=== PATIENT | male | born 2000 | race Caucasian/White ===

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

== ENCOUNTER → 2021-07-24 | Outpatient (CLI) | payer MEDICAID ==
[2021-07-24 12:41] LABS: BASO # 0.07 K/mm3 (0.02-0.10); EOS # 0.05 K/mm3 (0.04-0.40); EOS % 0.4 % (0.0-4.0); HEMATOCRIT 47.4 % (36.0-47.0); HEMOGLOBIN 16.2 g/dL (12.5-16.1); LYMPH# 2.24 K/mm3 (1.50-4.00); MEAN CELL VOLUME 85 fl (78-95); MEAN CORPUSCULAR HEMOGLOBIN 29 pg (26-32); MEAN CORPUSCULAR HGB CONC 34 g/dL (33-37); MEAN PLATELET VOLUME 11.8 fl (7.4-10.4); MONO # 0.78 K/mm3 (0.20-0.80); NEU # 9.68 K/mm3 (1.40-6.50); PLATELET COUNT 218 K/mm3 (130-400); RED CELL DISTRIBUTION WIDTH 12.1 % (11.5-14.5); WHITE BLOOD COUNT 12.8 K/mm3 (4.8-10.8)
[2021-07-24 12:45] LABS: ALBUMIN 5.1 g/dL (3.5-5.0); POTASSIUM 3.6 mmol/L (3.5-5.1)
[2021-07-24 12:47] LABS: CALCIUM 9.9 mg/dL (8.3-10.5)
[2021-07-24 12:50] LABS: TOTAL BILIRUBIN 0.7 mg/dL (0.2-1.2)
[2021-07-24 12:54] LABS: MAGNESIUM 2.1 mg/dL (1.70-2.20)
[2021-07-24 13:09] LABS: URINE APPEARANCE CLEAR; URINE BILIRUBIN NEGATIVE (NEGATIVE); URINE BLOOD NEGATIVE (NEGATIVE); URINE COLOR YELLOW; URINE GLUCOSE NEGATIVE (NEGATIVE); URINE KETONE NEGATIVE (NEGATIVE); URINE LEUKOCYTE ESTERASE NEGATIVE (NEGATIVE); URINE MUCUS PRESENT (NOT PRESENT); URINE NITRATE NEGATIVE (NEGATIVE); URINE PROTEIN(semi-quant) 1+ (NEGATIVE); URINE UROBILINOGEN NORMAL (NORMAL)
== END ==
LOC: LAB 12:05
PROVIDERS: Nurse Practitioner Family
DX: R10.9 Unspecified abdominal pain (principal); R68.83 Chills (without fever); R19.7 Diarrhea, unspecified

== ENCOUNTER → 2021-07-25 | Outpatient (CLI) | payer MEDICAID | LOC: LAB 12:54 | DX: R19.7 Diarrhea, unspecified (principal) ==

== ENCOUNTER 2022-02-15 23:12 | Emergency (ER) | payer MEDICAID ==
[~2022-02-15] VITALS: Ht 175.3 cm; Wt 81.7 kg
[~2022-02-15 23:12] MED LIST changes: +AMOXICILLIN 50500 MG PO; +MUSCLE RELAXER
[2022-02-15 23:16] VITALS: BP 132/87
[2022-02-15] MEDS ORDERED: CEPHALEXIN500 M1 PO (23:51)
== END 2022-02-16 00:02 | disposition home or self-care (01) ==
LOC: ED 23:12
DX: K04.7 Periapical abscess without sinus (principal); K02.9 Dental caries, unspecified; K03.81 Cracked tooth; F17.290 Nicotine dependence, other tobacco product, uncomplicated; Z28.310 Unvaccinated for COVID-19
CPT/HCPCS: J0696

== ENCOUNTER 2023-11-18 17:28 | Emergency (ER) | payer SELFPAY ==
[~2023-11-18] VITALS: Ht 172.7 cm; Wt 69.2 kg
[~2023-11-18 17:28] MED LIST changes: +CEPHALEXIN500 M1 PO; +ZOFRAN ODT4 MG PO
[2023-11-18] MEDS ORDERED: HYDROcodone/Acetaminophen 10-325 MG TAB PO ONE (19:15)
[2023-11-18 19:44] VITALS: BP 105/81
== END 2023-11-18 19:44 | disposition home or self-care (01) ==
LOC: ED 17:28
DX: S62.306A Unspecified fracture of fifth metacarpal bone, right hand, initial encounter for closed fracture (principal); W22.09XA Striking against other stationary object, initial encounter